=== PATIENT | female | born 1940 | race Two or more races ===

== ENCOUNTER 2024-10-25 15:09 | Emergency (ER) | payer OTHER ==
[~2024-10-25] VITALS: Ht 152.4 cm; Wt 67.1 kg
[~2024-10-25 15:09] MED LIST: MOBIC15 MG PO; MOBIC7.5 MG PO; ORPH100T PO; RANITIDINE HCL300 MG PO
[2024-10-25 15:36] VITALS: O2SAT 97
[2024-10-25] MEDS ORDERED: ATACAND HCT 321 EAC1 PO (15:39)
[2024-10-25] MEDS ORDERED: PLAVIX75 MG (15:39)
[2024-10-25] MEDS ORDERED: OXYBUTYNIN CHLOR5 MG PO (15:39)
[2024-10-25] MEDS ORDERED: METFORMIN HCL500 MG (15:39)
[2024-10-25] MEDS ORDERED: HYDRALAZINE HCL25 MG PO (15:39)
[2024-10-25] MEDS ORDERED: ACETAMINOPHEN 500 MG GEL..CAP PO ONE (16:45)
[2024-10-25 17:09] LABS: BASO % 0.5 % (0.1-1.2); EOS # 0.29 (0.04-0.54); EOS % 3.8 % (0.7-7.0); LYMPH # 2.42 (1.18-3.74); LYMPH % 31.6 % (19.3-53.1); MEAN PLATELET VOLUME 10.20 fl (9.4-12.4); MONO # 0.47 (0.24-0.82); MONO % 6.1 % (4.7-12.5); NEUT # 4.43 (1.56-6.13); NEUT % 57.9 % (34.0-71.1); RED CELL DISTRIBUTION WIDTH 13.7 % (11.6-14.4)
[2024-10-25 17:41] LABS: COVID-19 AG NEGATIVE (NEGATIVE)
[2024-10-25] MEDS ORDERED: ZITHROMAX500 MG PO (18:12)
[2024-10-25] MEDS ORDERED: TUSNEL LIQUID178 ML PO (18:12)
== END 2024-10-25 18:21 | disposition home or self-care (01) ==
LOC: ER 16:18
PROVIDERS: General Practice
DX: B34.9 Viral infection, unspecified (principal); Z20.822 Contact with and (suspected) exposure to COVID-19; I10 Essential (primary) hypertension; E11.9 Type 2 diabetes mellitus without complications; Z79.84 Long term (current) use of oral hypoglycemic drugs